=== PATIENT | female | born 1980 | race Caucasian/White ===

== ENCOUNTER → 2018-12-05 16:25 | Outpatient (CLI) | payer BC, SELFPAY ==
[2018-12-05 17:25] LABS: Basophils # 0.1 K/mm3 (0-0.2); Basophils % 0.5 % (0.1-2.0); Eosinophils # 0.1 K/mm3 (0.0-0.4); Eosinophils % 1.1 % (0.1-12.0); Hematocrit 38.7 % (37.0-47.0); Hemoglobin 12.2 g/dL (12.2-16.2); Lymphocytes # 2.7 K/mm3 (0.7-4.5); Lymphocytes % 29.9 % (10-50); Mean Corpuscular HGB Conc 31.7 g/dL (31.8-35.4); Mean Corpuscular Hemoglobin 24.2 pg (27.0-31.2); Mean Corpuscular Volume 76.4 fl (81-99); Mean Platelet Volume 6.7 fl (7.4-10.4); Monocytes # 0.4 K/mm3 (0.1-1.0); Monocytes % 4.3 % (1.7-9.3); Neutrophils # 5.7 K/mm3 (1.8-7.8); Neutrophils % 64.2 % (37.0-80.0); Platelet Count 335 K/mm3 (142-424); Red Blood Count 5.06 M/mm3 (4.20-5.40); Red Cell Distribution Width 15.9 % (11.5-17.5); White Blood Count 8.9 K/mm3 (4.8-10.8)
[2018-12-05 17:58] LABS: Alanine Aminotransferase 27 U/L (12-78); Albumin Level 3.7 gm/dL (3.4-5.0); Albumin/Globulin Ratio 1.1 (1.1-1.8); Alkaline Phosphatase 63 U/L (46-116); Anion Gap 12.2 mEq/L (5-15); Aspartate Amino Transferase 18 U/L (15-37); Bilirubin,Total 0.3 mg/dL (0.2-1.0); Blood Urea Nitrogen 11 mg/dL (7-18); Calcium 8.8 mg/dL (8.5-10.1); Carbon Dioxide 29 mmol/L (21.0-32.0); Chloride 102 mmol/L (98-107); Creatinine,Serum 0.86 mg/dL (0.55-1.02); Estimated Glomerular Filt Rate 74 ml/min (>60); Ferritin 38 ng/mL (8-388); Free T4 (Free Thyroxine) 1.08 ng/dl (0.76-1.46); GFR (African American) 90 ML/MIN (>60); Globulin 3.4 gm/dl (1.3-3.2); Glucose 137 mg/dL (74-106); Magnesium 1.7 mg/dL (1.4-2.2); Potassium 4.2 mmoL/L (3.5-5.1); Sodium 139 mmol/L (136-145); Total Protein,Serum 7.1 gm/dL (6.4-8.2)
== END ==
PROVIDERS: Visit Provider Nurse Practitioner Family
DX: R00.2 Palpitations (principal); I49.9 Cardiac arrhythmia, unspecified
CPT/HCPCS: 36415; 80053; 82728; 83735; 84439; 84443; 85025

== ENCOUNTER → 2018-12-15 13:26 | Outpatient (CLI) | payer BC, SELFPAY | PROVIDERS: PCP Family Medicine; Visit Provider Nurse Practitioner Family | DX: R00.2 Palpitations (principal); I49.9 Cardiac arrhythmia, unspecified | CPT/HCPCS: 93225; 93226 ==

== ENCOUNTER → 2018-12-16 13:26 | Outpatient (CLI) | payer BC, SELFPAY ==
--- NOTE | 2018-12-16 13:32 | CA_ITS ---
APPROVED REPORT EXAM: Comprehensive 2D, Doppler, and color-flow Echocardiogram Rayon Coner: Vita Torres CRT Ht: 5 ft 8 in Wt: 300lbs BSA: 2.43 BP: 140/90 mmHg Indications: Shortness of Breath, Diabetes, Obesity, Palpitations, Fatigue 2D Dimensions LVOT 2.10 cm (M/F) 1.5-2.5 M-Mode Dimensions RVDd 2.00 cm (0.9-2.6) LA Diam 4.30 cm (1.9-4.0) LVDd 4.90 cm (3.5-5.7) Ao Diam 3.50 cm (2.0-3.7) LVDs 3.30 cm (3.5-5.7) AV Cusp 2.10 cm (1.5-2.6) IVSd 2.00 cm (0.6-1.1) PWd 1.10 cm (0.6-1.1) EF (Teich) 61.00% FS 32.70% EDV (Teich) 113.00 mL ESV (Teich) 44.10 mL LV Diastology E/A Ratio 1.50 MED E' 6.53 (< 7 cm/sec) E'/MED E' Ratio 16.50 (>14) LAT E' 16.80 (<10 cm/sec) E/LAT E' Ratio 6.40 (>14) Aortic Valve AoV Peak Everardo. 154.00 (50-130 cm/s) AO Peak GR. 9.00 mmHg Mitral Valve MV E Max Everardo. 108.00 (40-130 cm/s) MV A Velocity 70.10 (40-130 cm/s) E/A Ratio 1.50 Pulmonary Valve GA End VMAX 90.80 cm/s PA Accel Time 155.00 (>120 msec) Tricuspid Valve TR P. Velocity 346.00 cm/s RAP Estimate 10.00 mmHg RVSP 58.00 mmHg Left Ventricle Left atrium is mildly enlarged, left ventricle is normal size, mild concentric left ventricular hypertrophy, visually estimated ejection fraction 55% with no regional wall motion abnormality. Diastolic parameters are within normal range. Right Ventricle Right atrium and right ventricular normal size and contractility. Aortic Valve Aortic valve is grossly normal, there is no aortic stenosis aortic insufficiency. Mitral Valve Mitral valve is grossly normal, there is no mitral stenosis, there is mild mitral regurgitation. Tricuspid Valve Tricuspid valve is grossly normal, there is no tricuspid regurgitation. Tricuspid dilatation jet velocity is inadequate for calculation of the right ventricular systolic pressure. Pulmonic Valve Pulmonic valve is poorly visualized. Great Vessels Aortic root is normal size. Pericardium No significant pericardial effusion noted. Conclusion 1. Normal left ventricular size, preserved left ventricular systolic function, visually estimated ejection fraction 55% with no regional wall motion abnormality, diastolic parameters are within normal range. 2. Mild mitral and tricuspid regurgitation 3. No significant pericardial effusion noted. Electronically signed by : Eduardo Edwards, 12/19/2018 16:33:28
== END ==
PROVIDERS: PCP Nurse Practitioner Family; Visit Provider Nurse Practitioner Family
DX: R00.2 Palpitations (principal); I49.9 Cardiac arrhythmia, unspecified
CPT/HCPCS: 93306

== ENCOUNTER → 2020-03-04 08:47 | Outpatient (CLI) | payer BC, SELFPAY ==
[2020-03-05 17:48] LABS: Covid-19 Nasal PCR Sendout Lex Not Detected
== END ==
PROVIDERS: PCP Nurse Practitioner Family; Visit Provider Nurse Practitioner Family
DX: Z03.818 Encounter for observation for suspected exposure to other biological agents ruled out (principal)
CPT/HCPCS: U0004

== ENCOUNTER → 2021-08-09 13:03 | Outpatient (CLI) | payer BC, SELFPAY ==
--- NOTE | 2021-08-09 13:08 | US_ITS ---
FINAL REPORT CLINICAL HISTORY: SUBCUTANEOUS MASS OF LT LOWER LEG FINDINGS: Limited sonographic images of the left lower extremity were obtained. In the area of interest, there is a 2.2 x 1.6 x 0.8 cm ovoid slightly hypoechoic mass of uncertain etiology which could represent a lipoma. This does not have the appearance of simple fluid. IMPRESSION: Hypoechoic mass in the area of interest, could represent a lipoma. Reviewed, Interpreted and Dictated by Claudio Lynn III, MD Transcribed by Terrie Borges Authenticated by Claudio Lynn III, MD on 08/09/2021 02:17:20 PM [facility] [place]
== END ==
PROVIDERS: PCP Nurse Practitioner Family; Visit Provider Nurse Practitioner Family
DX: R22.42 Localized swelling, mass and lump, left lower limb (principal)
CPT/HCPCS: 76882

== ENCOUNTER → 2021-09-08 18:55 | Outpatient (CLI) | payer BC, OTHER, SELFPAY | PROVIDERS: PCP Family Medicine; Visit Provider Nurse Practitioner Family | DX: R51.9 Headache, unspecified (principal); G47.00 Insomnia, unspecified; R06.83 Snoring; I10 Essential (primary) hypertension; E66.9 Obesity, unspecified; Z68.41 Body mass index [BMI] 40.0-44.9, adult | CPT/HCPCS: 95806 ==

== ENCOUNTER → 2021-09-20 08:02 | Outpatient (CLI) | payer BC, OTHER, SELFPAY ==
--- NOTE | 2021-09-20 08:02 | MR_ITS ---
FINAL REPORT CLINICAL HISTORY: worsening headaches, eval for mass, lesion. HX OF MIGRAINE HEADACHE BUT MIGRAINE HEADACHES HAVE CHANGED X1YEAR AGO, NOW HAVING AURAS WITH HEADACHE. FINDINGS: Multiplanar MR imaging of the brain was performed without contrast. There is no evidence of intracranial hemorrhage or mass. The ventricular size is normal. There is no evidence of shift of the midline structures. No abnormal extra-axial fluid collection is identified. The posterior fossa and brainstem have an unremarkable appearance. No area of abnormal restricted diffusion is identified. Normal major vessel vascular flow voids are seen. There is mucosal thickening of the bilateral maxillary and sphenoid sinuses. IMPRESSION: No acute intracranial abnormality. Reviewed, Interpreted and Dictated by Claudio Lynn III, MD Transcribed by Bridget Cohen Authenticated and [facility]
== END ==
PROVIDERS: PCP Family Medicine; Visit Provider Nurse Practitioner Family
DX: R51.9 Headache, unspecified (principal)
CPT/HCPCS: 70551

== ENCOUNTER → 2021-09-20 08:52 | Outpatient (CLI) | payer BC, SELFPAY ==
[2021-09-20 09:31] LABS: Basophils % 0.7 % (0.1-2.0); Eosinophils # 0.1 K/mm3 (0.0-0.4); Hematocrit 40.3 % (37.0-47.0); Hemoglobin 13.3 g/dL (12.2-16.2); Lymphocytes # 1.8 K/mm3 (0.7-4.5); Lymphocytes % 28.1 % (10-50); Mean Corpuscular HGB Conc 32.9 g/dL (31.8-35.4); Mean Corpuscular Hemoglobin 27.2 pg (27.0-31.2); Mean Corpuscular Volume 82.6 fl (81-99); Monocytes # 0.3 K/mm3 (0.1-1.0); Monocytes % 4.7 % (1.7-9.3); Neutrophils # 4.2 K/mm3 (1.8-7.8); Neutrophils % 65.4 % (37.0-80.0); Platelet Count 306 K/mm3 (142-424); Red Blood Count 4.88 M/mm3 (4.20-5.40); Red Cell Distribution Width 15.9 % (11.5-17.5); White Blood Count 6.4 K/mm3 (4.8-10.8)
[2021-09-20 09:59] LABS: Chloride 108 mmol/L (98-107)
[2021-09-20 10:00] LABS: Sodium 140 mmol/L (136-145)
[2021-09-20 10:02] LABS: Alanine Aminotransferase 17 U/L (12-78); Aspartate Amino Transferase 23 U/L (14-36); Bilirubin,Total 0.3 mg/dl (0.2-1.3); Blood Urea Nitrogen 11 mg/dl (7-17); Estimated Glomerular Filt Rate 93 ml/min (>60); GFR (African American) 112 ML/MIN (>60)
[2021-09-20 10:03] LABS: Albumin Level 4.2 g/dl (3.5-5.0); Albumin/Globulin Ratio 1.6 (1.1-1.8); Alkaline Phosphatase 67 U/L (38-126); Calcium 9.2 mg/dl (8.4-10.2); Carbon Dioxide 23 mmol/L (22.0-30.0); Globulin 2.6 g/dL (1.3-3.2); Glucose 123 mg/dl (74-100); Total Protein,Serum 6.8 g/dl (6.3-8.2)
[2021-09-20 10:34] LABS: Thyroid Stimulating Hormone 1.21 uIU/mL (0.465-4.68)
[2021-09-20 10:53] LABS: Vitamin B12 390 pg/mL (239-931)
== END ==
PROVIDERS: PCP Family Medicine; Visit Provider Nurse Practitioner Family
DX: R51.9 Headache, unspecified (principal)
CPT/HCPCS: 36415; 80053; 82607; 82746; 84443; 85025